=== PATIENT | male | born 1945 | race Two or more races ===

== ENCOUNTER 2024-03-04 12:37 | Outpatient (CLI) | payer OTHER | END 2024-03-04 12:58 | disposition home or self-care (01) | LOC: RAD 12:37 | PROVIDERS: ATTEND Orthopaedic Surgery | DX: Z76.89 Persons encountering health services in other specified circumstances (principal); M25.561 Pain in right knee; M25.562 Pain in left knee ==

== ENCOUNTER 2024-03-09 07:28 | Outpatient (CLI) | payer OTHER ==
[2024-03-09 08:33] LABS: HEMATOCRIT 38.7 % (39.0-48.0); MEAN CORPUSCULAR HGB CONC 33.7 g/dl (32.0-36.0); PLATELET COUNT 255 K/uL (150-450); RED BLOOD COUNT 4.21 M/uL (4.00-6.00); RED CELL DISTRIBUTION WIDTH 13.1 % (11.5-14.5)
[2024-03-09 08:41] LABS: URINE APPEARANCE Clear; URINE BILIRRUBIN Negative (NEGATIVE); URINE BLOOD Negative; URINE COLOR Yellow; URINE GLUCOSE Negative (NEGATIVE); URINE KETONE Negative (NEGATIVE); URINE LEUKOCYTE Negative; URINE NITRATE Negative; URINE PROTEIN Negative (NEGATIVE); URINE UROBILINOGEN 0.2 E.U./dl
[2024-03-09 08:42] LABS: URINE RBC 4.7 uL (0.0-20.8)
[2024-03-09 09:03] LABS: INR 1.02; PARTIAL THROMBOPLASTIN TIME 25.3 SECONDS (22.0-34.0); PROTHROMBIN TIME 11.1 SECONDS (9.0-11.5)
[2024-03-09 09:19] LABS: URINE EPITHELIAL CELLS 0.1 uL (0.0-38.8); URINE WBC 0.1 uL (0.0-23.2)
[2024-03-09 10:12] LABS: BILIRUBIN TOTAL 0.54 mg/dL (0.3-1.2); CALCIUM 9.1 mg/dL (8.5-10.1); CREATININE SERUM 0.65 mg/dL (0.70-1.30); GFR 118.8; POTASSIUM 4.24 mEq/L (3.5-5.1)
[2024-03-09 11:10] LABS: COL EPI 62 SECONDS (82-175)
== END 2024-03-09 07:29 | disposition home or self-care (01) ==
LOC: RAD 07:28
PROVIDERS: ATTEND Orthopaedic Surgery
DX: D64.9 Anemia, unspecified (principal); E88.89 Other specified metabolic disorders; D68.8 Other specified coagulation defects; N39.0 Urinary tract infection, site not specified; Z22.322 Carrier or suspected carrier of Methicillin resistant Staphylococcus aureus; E11.9 Type 2 diabetes mellitus without complications; I10 Essential (primary) hypertension; Z76.89 Persons encountering health services in other specified circumstances

== ENCOUNTER 2024-03-19 10:15 | Inpatient (IN) | payer OTHER ==
[~2024-03-19] VITALS: Ht 170.2 cm; Wt 72.6 kg
[2024-03-19] MEDS ORDERED: METFORMIN HCL850 MG (14:22)
[2024-03-19] MEDS ORDERED: ENALAPRIL MALEA10 MG PO (14:23)
[2024-03-19] MEDS ORDERED: B12 ACTIVE1000 MCG PO (14:23)
[2024-03-24] MEDS ORDERED: LIDOCAINE HCL 1%/EPINEPHRINE 20ML VIAL IJ ONE (12:15)
[2024-03-24] MEDS ORDERED: VANCOMYCIN HCL 1,000 MG VIAL IR ONE (12:15)
[2024-03-24] MEDS ORDERED: POLYMYXIN B SULFATE 500,000 U VIAL IJ ONE (12:15)
[2024-03-24] MEDS ORDERED: CEFAZOLIN SODIUM 1,000 MG VIAL IV ONE (12:15)
[2024-03-24] MEDS ORDERED: ISOPROPYL ALCOHOL 30 ML OUNCE TOP ONE (12:30)
[2024-03-24] MEDS ORDERED: KETOROLAC TROMETHAMINE 60 MG VIAL IM ONE (12:30)
[2024-03-24] MEDS ORDERED: BUPIVACAINE HCL 30 ML VIAL IJ ONE (12:30)
[2024-03-24] MEDS ORDERED: TRANEXAMIC ACID 100MG/1ML (1000MG) AMPUL IV ONE ×2 (12:30)
[2024-03-24] MEDS ORDERED: MORPHINE SULFATE 4 MG/ML CARTRIDGE IV ONE (12:30)
[2024-03-24] MEDS ORDERED: METFORMIN HCL850 M1 (14:10)
[2024-03-24] MEDS ORDERED: TIMOLOL MALEATE5 M4 (14:10)
[2024-03-24] MEDS ORDERED: DORZOLAMIDE HCL10 ML (14:10)
[2024-03-24] MEDS ORDERED: LATANOPROST2.5 ML (14:10)
[2024-03-24] MEDS ORDERED: BRIMONIDINE-TIMO5 ML (14:10)
[2024-03-24] MEDS ORDERED: XARELTO10 M1 (14:10)
[2024-03-24] MEDS ORDERED: MEPERIDINE HCL/PF 50 MG/ML VIAL IM PRN (14:45)
[2024-03-24] MEDS ORDERED: TRAMADOL HCL 50 MG TABLET PO PRN (14:45)
[2024-03-24] MEDS ORDERED: SODIUM CHLORIDE 0.45 % 1,000 ML IV SCH (14:45)
[2024-03-24] MEDS ORDERED: ONDANSETRON HCL 2 MG/ML VIAL IV PRN (14:45)
[2024-03-24] MEDS ORDERED: ONDANSETRON 4 MG TAB.RAPDIS PO PRN (14:45)
[2024-03-24] MEDS ORDERED: PROMETHAZINE HCL 50 MG/ML AMPUL IM PRN (14:45)
[2024-03-24] MEDS ORDERED: CEFAZOLIN SODIUM 1,000 MG VIAL IV SCH (17:00)
[2024-03-24] MEDS ORDERED: PANTOPRAZOLE SODIUM 40 MG TABLET.DR PO SCH (17:00)
[2024-03-24] MEDS ORDERED: CELECOXIB 200 MG CAPSULE PO SCH (17:00)
[2024-03-24] MEDS ORDERED: ACETAMINOPHEN 325 MG TABLET PO SCH (17:00)
[2024-03-24 18:50] VITALS: BP 116/52; O2SAT 92
[2024-03-24] MEDS ORDERED: KETOROLAC TROMETHAMINE 10 MG TABLET PO SCH (21:00)
[2024-03-25] VITALS: BP 101/55; O2SAT 98
[2024-03-25 06:09] LABS: HEMATOCRIT 32.8 % (39.0-48.0); HEMOGLOBIN 11.4 g/dL (13-16.00); MEAN CELL VOLUME 92.5 fL (80.0-100.00); MEAN CORPUSCULAR HEMOGLOBIN 32.2 pg (27.00-32.0); MEAN CORPUSCULAR HGB CONC 34.8 g/dl (32.0-36.0); PLATELET COUNT 210 K/uL (150-450); RED BLOOD COUNT 3.54 M/uL (4.00-6.00); RED CELL DISTRIBUTION WIDTH 12.9 % (11.5-14.5)
[2024-03-25] MEDS ORDERED: RIVAROXABAN 10 MG TAB PO SCH (09:00)
[2024-03-25 10:06] VITALS: BP 192/81; O2SAT 95
[2024-03-25] MEDS ORDERED: ENALAPRILAT DIHYDRATE 1.25 MG/ML VIAL IV ONE (11:00)
[2024-03-25 13:57] LABS: ALBUMIN 3.6 gm/dL (3.4-5.0); BILIRUBIN TOTAL 0.9 mg/dL (0.3-1.2); CALCIUM 8.3 mg/dL (8.5-10.1); CREATININE SERUM 0.77 mg/dL (0.70-1.30); GFR 97.71; GLOBULINA 2.8 G/DL (2.4-3.5); POTASSIUM 5.17 mEq/L (3.5-5.1); TOTAL PROTEIN 6.4 gm/dL (6.4-8.2)
[2024-03-25 16:00] VITALS: BP 162/71; O2SAT 98
[2024-03-25 18:00] VITALS: BP 157/70
[2024-03-26 00:58] VITALS: BP 170/77; O2SAT 98
[2024-03-26 07:15] LABS: HEMOGLOBIN 10.9 g/dL (13-16.00); MEAN CORPUSCULAR HEMOGLOBIN 32.1 pg (27.00-32.0); MEAN CORPUSCULAR HGB CONC 35.2 g/dl (32.0-36.0); PLATELET COUNT 186 K/uL (150-450); RED BLOOD COUNT 3.41 M/uL (4.00-6.00)
[2024-03-26 08:59] VITALS: BP 160/74; O2SAT 95
[2024-03-26] MEDS ORDERED: SENNA/DOCUSATE SODIUM 1 TAB TABLET PO SCH (09:00)
[2024-03-26 16:00] VITALS: BP 164/75; O2SAT 98
== END 2024-03-26 18:13 | disposition home or self-care (01) | DRG 470 ==
LOC: O/R 03-24 07:24 → SURG 03-24 09:45
PROVIDERS: ADMIT Orthopaedic Surgery; ATTEND Orthopaedic Surgery
PROC: 0SRD0J9 Replacement of Left Knee Joint with Synthetic Substitute, Cemented, Open Approach (ICD-10-PCS; principal; 2024-03-24 09:45)
DX: M17.12 Unilateral primary osteoarthritis, left knee (principal); I10 Essential (primary) hypertension

== ENCOUNTER 2024-09-03 06:07 | Outpatient (CLI) | payer OTHER ==
[~2024-09-03 06:07] MED LIST: B12 ACTIVE1000 MCG PO; BRIMONIDINE-TIMO5 ML; DORZOLAMIDE HCL10 ML; ENALAPRIL MALEA10 MG PO; LATANOPROST2.5 ML; METFORMIN HCL850 M1; METFORMIN HCL850 MG; TIMOLOL MALEATE5 M4; XARELTO10 M1
== END 2024-09-03 06:08 | disposition home or self-care (01) ==
LOC: LAB 06:07
PROVIDERS: ATTEND Orthopaedic Surgery
DX: E55.9 Vitamin D deficiency, unspecified (principal); M85.9 Disorder of bone density and structure, unspecified; E56.1 Deficiency of vitamin K

== ENCOUNTER 2024-09-03 07:17 | Outpatient (CLI) | payer OTHER | END 2024-09-03 07:20 | disposition home or self-care (01) | LOC: RAD 07:17 | PROVIDERS: ATTEND Orthopaedic Surgery | DX: Z96.652 Presence of left artificial knee joint (principal) ==